=== PATIENT | male | born 2000 | race Caucasian/White ===

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

== ENCOUNTER 2022-07-08 23:28 | Emergency (ER) | payer MEDICAID ==
[~2022-07-08] VITALS: Ht 172.7 cm; Wt 54.4 kg
[2022-07-08 23:38] VITALS: BP 122/68
[2022-07-09] MEDS ORDERED: CYCLOBENZAPRINE10 MG PO (00:21)
[2022-07-09] MEDS ORDERED: LIDODERM1 EACH T (00:42)
== END 2022-07-09 00:44 | disposition home or self-care (01) ==
LOC: ED 23:28
DX: S22.32XA Fracture of one rib, left side, initial encounter for closed fracture (principal); M25.512 Pain in left shoulder; Z98.890 Other specified postprocedural states; X50.9XXA Other and unspecified overexertion or strenuous movements or postures, initial encounter; Y93.89 Activity, other specified; Y92.89 Other specified places as the place of occurrence of the external cause; Y99.8 Other external cause status

== ENCOUNTER 2022-08-24 10:54 | Emergency (ER) | payer MEDICAID ==
[~2022-08-24] VITALS: Wt 58.1 kg
[~2022-08-24 10:54] MED LIST: CYCLOBENZAPRINE10 MG PO; LIDODERM1 EACH T
[2022-08-24 11:03] VITALS: BP 130/78
== END 2022-08-24 13:11 | disposition home or self-care (01) ==
LOC: ED 10:54
DX: S22.39XA Fracture of one rib, unspecified side, initial encounter for closed fracture (principal); Z98.890 Other specified postprocedural states; W18.39XA Other fall on same level, initial encounter; Y93.89 Activity, other specified; Y92.89 Other specified places as the place of occurrence of the external cause; Y99.8 Other external cause status

== ENCOUNTER 2022-09-26 17:52 | Emergency (ER) | payer MEDICAID ==
[~2022-09-26] VITALS: Wt 54.4 kg
[2022-09-26 18:17] LABS: BASO % 0.5 % (0.0-1.0); HEMATOCRIT 44.4 % (42.0-52.0); LYMPH # 0.8 10*3/uL (1.3-4.4); LYMPH % 12.1 % (27.0-41.0); MEAN CELL VOLUME 86.2 fl (80.0-94.0); MEAN CORPUSCULAR HGB 30.7 pg (27.0-31.0); MEAN CORPUSCULAR HGB CONC 35.6 g/dl (33.0-37.0); MEAN PLATELET VOLUME 9.7 fl (9.6-12.3); MONO # 0.3 10*3/uL (0.1-1.0); MONO % 4.4 % (3.0-9.0); NEUT # 5.4 10*3/uL (2.3-7.9); NEUT % 82.1 % (47.0-73.0); PLATELET COUNT AUTOMATED 280 10*3/uL (130-400); RED BLOOD COUNT 5.15 10*6/uL (4.50-5.90); WHITE BLOOD COUNT 6.6 10*3/uL (4.8-10.8)
[2022-09-26 18:32] LABS: ALKALINE PHOSPHATASE 78 U/L (46-116); BUN 9 mg/dl (9-23); CHLORIDE 100 mmol/L (98-107); ETHYL ALCOHOL < 3.0 mg/dl (<3); LIPASE 54 U/L (12-53); POTASSIUM 4.3 mmol/L (3.4-5.1); SGPT/ALT 18 U/L (10-49); TOTAL PROTEIN 7.8 gm/dL (6.0-8.0)
[2022-09-26 19:04] LABS: BILIRUBIN Negative (Negative); BLOOD Trace-Lysed (Negative); CLARITY Clear (Clear); COLOR Yellow (Yellow); GLUCOSE Negative (Negative); KETONE 1+ (Negative); LEUKO ESTERASE Negative (Negative); NITRITE Negative (Negative); UROBILINOGEN 0.2 E.U./dl (0.0-1.0)
[2022-09-26 19:11] LABS: URINE AMPHETAMINES Negative (1000ng/ml); URINE BARBITURATES Negative (200ng/ml); URINE BENZODIAZEPINES Negative (200ng/ml); URINE CANNABINOIDS (THC) Positive (50ng/ml); URINE COCAINE Negative (300ng/ml); URINE METHADONE Negative (300ng/ml); URINE OPIATES Negative (300ng/ml); URINE PHENCYCLIDINE Negative (25ng/ml)
[2022-09-26 19:18] LABS: MUCOUS 1+; WBC 0-2 wbc/hpf (0-5)
[2022-09-26 19:35] VITALS: BP 95/78
== END 2022-09-26 20:25 | disposition left against medical advice (07) ==
LOC: ED 17:52
PROVIDERS: Family Medicine
DX: R56.9 Unspecified convulsions (principal); Z98.890 Other specified postprocedural states

== ENCOUNTER 2023-05-20 11:25 | Emergency (ER) | payer MEDICAID ==
[~2023-05-20] VITALS: Ht 162.5 cm; Wt 54.4 kg
[2023-05-20 11:35] VITALS: BP 92/65
[2023-05-20 11:52] LABS: BASO % 0.2 % (0.0-1.0); HEMATOCRIT 41.8 % (42.0-52.0); LYMPH # 0.7 10*3/uL (1.3-4.4); LYMPH % 8.7 % (27.0-41.0); MEAN CELL VOLUME 85.7 fl (80.0-94.0); MEAN CORPUSCULAR HGB 31.1 pg (27.0-31.0); MEAN CORPUSCULAR HGB CONC 36.4 g/dl (33.0-37.0); MEAN PLATELET VOLUME 10.2 fl (9.6-12.3); MONO # 0.5 10*3/uL (0.1-1.0); MONO % 6.4 % (3.0-9.0); NEUT # 6.8 10*3/uL (2.3-7.9); NEUT % 84.6 % (47.0-73.0); PLATELET COUNT AUTOMATED 260 10*3/uL (130-400); RED BLOOD COUNT 4.88 10*6/uL (4.50-5.90); RED CELL DISTRI WIDTH 11.9 % (0-14.5)
[2023-05-20 12:13] LABS: ALKALINE PHOSPHATASE 89 U/L (46-116); BUN 9 mg/dl (9-23); CHLORIDE 104 mmol/L (98-107); POTASSIUM 4.1 mmol/L (3.4-5.1); SGPT/ALT 13 U/L (10-49); TOTAL PROTEIN 8.1 gm/dL (6.0-8.0)
== END 2023-05-20 13:18 | disposition home or self-care (01) ==
LOC: ED 11:25
PROVIDERS: Emergency Medicine
DX: R56.9 Unspecified convulsions (principal); Z79.899 Other long term (current) drug therapy; Z98.890 Other specified postprocedural states

== ENCOUNTER → 2023-05-21 | Outpatient (CLI) | payer MEDICAID | END | disposition home or self-care (01) | LOC: LAB 12:34 | PROVIDERS: ATTEND Family Medicine | DX: G40.909 Epilepsy, unspecified, not intractable, without status epilepticus (principal) ==